=== PATIENT | male | born 1955 | race Caucasian/White ===

== ENCOUNTER → 2018-06-13 | Outpatient (REF) | payer BC ==
[2018-06-13 13:43] LABS: BASO # 0.1 10^3/uL (0.0-0.2); BASO % 0.9 % (0.0-1.0); EOS # 0.2 10^3/uL (0.0-0.50); EOS % 2.1 % (0.0-3.0); HEMATOCRIT 47.4 % (42.0-52.0); HEMOGLOBIN 15.9 g/dl (13.5-17.5); IMMATURE GRANULOCYTE % 0.2 % (0-3.0); LYMPH # 2.2 10^3/uL (1.5-4.5); LYMPH % 27.6 % (24.0-44.0); MEAN CORPUSCULAR HEMOGLOBIN 29.6 pg (27.0-33.0); MEAN CORPUSCULAR HGB CONC 33.5 g/dl (32.0-36.5); MEAN CORPUSCULAR VOLUME 88.3 fl (80.0-96.0); MONO # 0.7 10^3/uL (0.0-0.8); MONO % 8.8 % (0.0-5.0); NEUTROPHILS # 4.9 10^3/uL (1.8-7.7); NEUTROPHILS % 60.4 % (36.0-66.0); PLATELET COUNT, AUTOMATED 183 10^3/uL (150-450); RED BLOOD COUNT 5.37 10^6/uL (4.30-6.10); RED CELL DISTRIBUTION WIDTH 13.4 % (11.5-14.5); WHITE BLOOD COUNT 8.1 10^3/uL (4.0-10.0)
[2018-06-13 14:14] LABS: ALBUMIN/GLOBULIN RATIO 1.33 (1.00-1.93); ALKALINE PHOSPHATASE 75 U/L (45-117); ALT/SGPT 35 U/L (12-78); ANION GAP 10 MEQ/L (8-16); AST/SGOT 17 U/L (7-37); BILIRUBIN,TOTAL 0.6 MG/DL (0.2-1.0); BLOOD UREA NITROGEN 22 MG/DL (7-18); CALCIUM LEVEL 9.7 MG/DL (8.8-10.2); CARBON DIOXIDE LEVEL 24 MEQ/L (21-32); CHLORIDE LEVEL 106 MEQ/L (98-107); CREATININE FOR GFR 0.97 MG/DL (0.70-1.30); GLOMERULAR FILTRATION RATE > 60.0 (>49); GLUCOSE, FASTING 117 MG/DL (70-100); POTASSIUM SERUM 4.2 MEQ/L (3.5-5.1); RHEUMATOID FACTOR QUANT < 10.0 IU/ML (<15.0); SODIUM LEVEL 140 MEQ/L (136-145)
[2018-06-13 14:19] LABS: ERYTHROCYTE SEDIMENTATION RATE 3 mm/hr (0-20)
[2018-06-13 14:35] LABS: ESTIMATED AVERAGE GLUCOSE 140 MG/DL (60-110); HEMOGLOBIN A1c 6.5 %
[2018-06-13 15:23] LABS: FOLATE 14.3 NG/ML
[2018-06-17 08:36] LABS: ANTI DOUBLE STRAND-DNA AB <1 IU/mL (0-9); ANTINUCLEAR ANTIBODIES DIRECT Negative (Negative); COPPER PLASMA 98 ug/dL (72-166); LEAD BLOOD ADULT 2 ug/dL (0-4); Lyme Disease IgG/IgM Antibodie <0.91 ISR (0.00-0.90); Lyme Disease IgM Ab Quantitati <0.80 index (0.00-0.79); MERCURY LEVEL 2.2 ug/L (0.0-14.9); SJOGREN'S ANTI SS-A <0.2 AI (0.0-0.9); SJOGREN'S ANTI SS-B <0.2 AI (0.0-0.9)
[2018-06-17 11:17] LABS: ALBUMIN 4.28 GM/DL (3.29-5.55); ALBUMIN % 61.2 % (55.8-66.1); ALPHA-1-GLOBULIN % 4.2 % (2.9-4.9); ALPHA-1-GLOBULINS 0.29 GM/DL (0.17-0.41); ALPHA-2-GLOBULINS 0.81 GM/DL (0.42-0.99); ALPHA-2-GLOBULINS % 11.6 % (7.1-11.8); BETA-1-GLOBULINS 0.49 GM/DL (0.28-0.60); BETA-2-GLOBULINS 0.35 GM/DL (0.19-0.55); GAMMA GLOBULINS 0.77 GM/DL (0.65-1.58)
[2018-06-17 14:27] LABS: VITAMIN E(ALPHA TOCOPHEROL) 9.5 mg/L (9.0-29.0); VITAMIN E(GAMMA TOCOPHEROL) 1.2 mg/L (0.5-4.9)
== END ==
LOC: M LABNEURO 09:12
DX: G62.9 Polyneuropathy, unspecified (principal)
CPT/HCPCS: 82525

== ENCOUNTER 2020-06-29 18:16 | Emergency (ER) | payer BC ==
[~2020-06-29] VITALS: Ht 182.9 cm; Wt 137.4 kg
[~2020-06-29 18:16] MED LIST: ACET65TA; ACET65TA OR; ASPI81TA83 OR; ASPI81TA86 PO; COUM1TAB18; COUM1TAB18 OR; DIOV320T PO; GABA-843 PO; GLUC500T OR; GLUC500T PO; HYDR25TA6; METF500T13 PO; NAPRPOW4 PO; PERC5TAB8; PERC5TAB8 OR; PERC7.5T8; PERC7.5T8 OR; ROSU20TA5 PO; SIMV5TAB2 PO; VALS80TA PO
[2020-06-29 19:41] LABS: BASO # 0.1 10^3/uL (0.0-0.2); BASO % 0.5 % (0.0-1.0); EOS # 0.1 10^3/uL (0.0-0.5); EOS % 1.4 % (0.0-3.0); HEMATOCRIT 43.2 % (42.0-52.0); HEMOGLOBIN 14.2 g/dl (13.5-17.5); LYMPH # 2.4 10^3/uL (1.5-5.0); LYMPH % 24.3 % (24.0-44.0); MEAN CORPUSCULAR HEMOGLOBIN 28.4 pg (27.0-33.0); MEAN CORPUSCULAR HGB CONC 32.9 g/dl (32.0-36.5); MEAN CORPUSCULAR VOLUME 86.4 fl (80.0-96.0); MONO % 10.1 % (0.0-5.0); NEUTROPHILS # 6.2 10^3/uL (1.5-8.5); NEUTROPHILS % 63.5 % (36.0-66.0); PLATELET COUNT, AUTOMATED 188 10^3/uL (150-450); WHITE BLOOD COUNT 9.7 10^3/uL (4.0-10.0)
[2020-06-29 19:54] LABS: INR 0.99; PROTHROMBIN TIME 13.3 SECONDS (12.5-14.3)
[2020-06-29 19:55] LABS: PARTIAL THROMBOPLASTIN TIME 31.6 SECONDS (24.2-38.5)
[2020-06-29 20:03] LABS: ALBUMIN 3.9 GM/DL (3.2-5.2); BILIRUBIN,DIRECT 0.1 MG/DL (0.0-0.2); BILIRUBIN,TOTAL 0.4 MG/DL (0.2-1.0); TOTAL PROTEIN 6.9 GM/DL (6.4-8.2)
--- NOTE | 2020-06-29 20:28 | REPVR ---
PROCEDURE INFORMATION: Exam: US Duplex Right Lower Extremity Veins, Limited Exam date and time: 06/29/2020 7:52 PM Age: 64 years old Clinical indication: Pain; Leg, upper; Right; Additional info: R/O dvt rle TECHNIQUE: Imaging protocol: Real-time Duplex ultrasound of the Right Lower Extremity with 2-D elizalde scale, color Doppler flow and spectral waveform analysis with image documentation. Limited exam was focused on the right lower extremity veins. COMPARISON: No relevant prior studies available. FINDINGS: Right deep veins: Unremarkable. The common femoral, femoral, proximal profunda femoral and popliteal veins are patent without thrombus. Normal Doppler waveforms. Normal compressibility and/or augmentation response. Right superficial veins: Unremarkable. Saphenofemoral junction is patent without thrombus. Soft tissues: Unremarkable. IMPRESSION: No evidence of deep vein thrombosis. Electronically signed by: Stephanie Means On 06/29/2020 20:28:01 PM
--- NOTE | 2020-06-29 20:34 | REPVR ---
PROCEDURE INFORMATION: Exam: XR Right Hip with Pelvis when Performed Exam date and time: 06/29/2020 8:05 PM Age: 64 years old Clinical indication: Other: R hip pain; Prior surgery; Additional info: R hip pain, S/P doug and revision TECHNIQUE: Imaging protocol: XR Right hip with pelvis when performed. Views: 2 or 3 views. COMPARISON: CR Spine. Lumbosacral, complete 01/18/2016 3:11 PM FINDINGS: Bones/joints: Bilateral total hip prostheses. Satisfactory alignment of the prosthesis with no evidence of fracture or loosening. Degenerative changes present in the lumbar spine. Soft tissues: Myositis ossificans noted within the soft tissues surrounding both hips. Vasculature: Vascular calcifications present within the pelvis. IMPRESSION: Bilateral total hip prostheses. Satisfactory prosthesis alignment with no evidence of loosening Electronically signed by: Stephanie Means On 06/29/2020 20:34:38 PM
--- NOTE | 2020-06-29 21:39 | REPVR ---
PROCEDURE INFORMATION: Exam: CT Right Lower Extremity Without Contrast, Hip Exam date and time: 06/29/2020 8:58 PM Age: 64 years old Clinical indication: Pain; Hip; Right; Additional info: R hip pain, sp doug and revision TECHNIQUE: Imaging protocol: CT of the Right lower extremity without contrast was performed. Exam focused on the hip. Radiation optimization: All CT scans at this facility use at least one of these dose optimization techniques: automated exposure control; mA and/or kV adjustment per patient size (includes targeted exams where dose is matched to clinical indication); or iterative reconstruction. COMPARISON: CR Hip,AP,LAT to include Pelvis 06/29/2020 7:43 PM FINDINGS: Bones/joints: There is a right total hip prosthesis. Anatomic alignment of the prosthesis. No fracture seen. No evidence of loosening Soft tissues: Myositis ossificans noted of the soft tissues surrounding the right hip. Vasculature: Vascular calcifications present in the pelvis. Reproductive: Calcifications present in the prostate. IMPRESSION: Satisfactory appearance of right total hip prosthesis. No evidence of a fracture of the prosthesis, periprosthetic fracture or loosening Electronically signed by: Stephanie Means On 06/29/2020 21:39:06 PM
[2020-06-29] MEDS ORDERED: CYCL5TAB PO (21:51)
[2020-06-29] MEDS ORDERED: NORCO 5/325MG TABLET (BULK FOR ED) PO ONE (22:00)
[2020-06-29 22:15] VITALS: BP 133/74
== END 2020-06-29 22:17 | disposition home or self-care (01) ==
LOC: M ED 18:16
DX: M25.551 Pain in right hip (principal); Z96.643 Presence of artificial hip joint, bilateral; E11.9 Type 2 diabetes mellitus without complications; I10 Essential (primary) hypertension; E78.5 Hyperlipidemia, unspecified; F41.9 Anxiety disorder, unspecified; E66.9 Obesity, unspecified; Z87.891 Personal history of nicotine dependence; Z79.899 Other long term (current) drug therapy

== ENCOUNTER → 2020-07-02 | Outpatient (CLI) | payer BC ==
[~2020-07-02] MED LIST changes: +CYCL5TAB PO
== END ==
LOC: M LABSMTC 08:41
PROVIDERS: ATTEND Anesthesiology
DX: Z20.828 Contact with and (suspected) exposure to other viral communicable diseases (principal)
CPT/HCPCS: C9803; U0003

== ENCOUNTER 2020-07-07 07:09 | Day surgery (SDC) | payer BC ==
[~2020-07-07] VITALS: Ht 182.9 cm; Wt 132.9 kg
[~2020-07-07 07:09] MED LIST changes: +NS 1,000 ML IV ONE
[2020-07-07] MEDS ORDERED: propofoL 200 MG/20 ML VIAL As Ordered ONE ×2 (07:46→08:04)
--- NOTE | 2020-07-07 08:26 | ROOR ---
Patient Name: Foster Stinson Procedure Date: 07/07/2020 7:52 AM Date of : 1955 Age: 64 Room: [facility] Gender: Male Note Status: Finalized Procedure: Colonoscopy Indications: Screening patient at increased risk: Family history of 1st-degree relative with colorectal cancer at age 60 years (or older) Providers: Zbigniew Roberto Jr, MD Referring MD: MIRTA SALDAÑA DO Requesting Provider: Medicines: Propofol per Anesthesia Complications: No immediate complications. Procedure: Pre-Anesthesia Assessment: - Prior to the procedure, a History and Physical was performed, and patient medications and allergies were reviewed. The patient is competent. The risks and benefits of the procedure and the sedation options and risks were discussed with the patient. All questions were answered and informed consent was obtained. Patient identification and proposed procedure were verified by the physician and the nurse in the pre-procedure area and in the procedure room. Mental Status Examination: alert and oriented. Airway Examination: normal oropharyngeal airway and neck mobility. Respiratory Examination: clear to auscultation. CV Examination: normal. ASA Grade Assessment: II - A patient with mild systemic disease. After reviewing the risks and benefits, the patient was deemed in satisfactory condition to undergo the procedure. The anesthesia plan was to use moderate sedation / analgesia (conscious sedation). Immediately prior to administration of medications, the patient was re-assessed for adequacy to receive sedatives. The heart rate, respiratory rate, oxygen saturations, blood pressure, adequacy of pulmonary ventilation, and response to care were monitored throughout the procedure. The physical status of the patient was re-assessed after the procedure. The Colonoscope was introduced through the anus and advanced to the cecum, identified by appendiceal orifice and ileocecal valve. The colonoscopy was performed without difficulty. The patient tolerated the procedure well. The quality of the bowel preparation was adequate. Findings: Three sessile polyps were found in the sigmoid colon, ascending colon and cecum. The polyps were small in size. These polyps were removed with a cold snare. Resection was complete, but the polyp tissue was only partially retrieved. The rectum, recto-sigmoid colon, descending colon, transverse colon, appendiceal orifice and ileocecal valve appeared normal. Impression: - Three small polyps in the sigmoid colon, in the ascending colon and in the cecum, removed with a cold snare. Complete resection. Partial retrieval. - The rectum, recto-sigmoid colon, descending colon, transverse colon, appendiceal orifice and ileocecal valve are normal. Recommendation: - Discharge patient to home (ambulatory). - Repeat colonoscopy in 5 years for surveillance. Zbigniew Roberto MD Zbigniew Roberto Jr, MD 07/07/2020 8:25:46 AM Electronically signed by Zbigniew Roberto Jr, MD Number of Addenda: 0 Note Initiated On: 07/07/2020 7:52 AM Estimated Blood Loss: Estimated blood loss: none.
[2020-07-07 08:50] VITALS: BP 130/85
== END 2020-07-07 08:56 | disposition home or self-care (01) ==
LOC: M OPP 07:09
PROVIDERS: ATTEND Surgery
DX: Z12.11 Encounter for screening for malignant neoplasm of colon (principal); Z80.0 Family history of malignant neoplasm of digestive organs; D12.6 Benign neoplasm of colon, unspecified; I10 Essential (primary) hypertension; E11.9 Type 2 diabetes mellitus without complications; Z87.891 Personal history of nicotine dependence; Z79.84 Long term (current) use of oral hypoglycemic drugs; Z79.899 Other long term (current) drug therapy

== ENCOUNTER 2020-08-23 12:57 | Emergency (ER) | payer BC ==
[~2020-08-23] VITALS: Ht 182.9 cm; Wt 136.8 kg
[~2020-08-23 12:57] MED LIST changes: -NS 1,000 ML IV ONE
--- NOTE | 2020-08-23 13:48 | REP ---
INDICATION: neuro symptoms; r/o stroke. COMPARISON: None. TECHNIQUE: Helical scanning is acquired. 5 mm axial images were reformatted. Coronal MPR images were generated. FINDINGS: Bone window settings demonstrate an intact bony calvarium. There is no evidence of skull fracture or incidental bony calvarial lesion. The visualized paranasal sinuses appear clear. No intraorbital abnormality is seen. On soft tissue window setting images; the lateral, third, and fourth ventricles are normal in size and position. Pearson-white differentiation pattern is normal above and below the tentorium. There are is no evidence of intracranial hemorrhage. No mass, edema, infarction, or midline shift is seen. No extra-axial fluid collection is appreciated. IMPRESSION: Negative noncontrast head CT. <Electronically signed by Escobar Avila > 08/23/20 [id number]
[2020-08-23 14:00] LABS: BASO # 0.1 10^3/uL (0.0-0.2); BASO % 0.7 % (0.0-1.0); EOS # 0.2 10^3/uL (0.0-0.5); EOS % 2.2 % (0.0-3.0); HEMATOCRIT 44.6 % (42.0-52.0); HEMOGLOBIN 15.1 g/dl (13.5-17.5); LYMPH % 26.2 % (24.0-44.0); MEAN CORPUSCULAR HEMOGLOBIN 28.9 pg (27.0-33.0); MEAN CORPUSCULAR HGB CONC 33.9 g/dl (32.0-36.5); MEAN CORPUSCULAR VOLUME 85.4 fl (80.0-96.0); MONO # 0.6 10^3/uL (0.0-0.8); MONO % 8.5 % (0.0-5.0); NEUTROPHILS # 4.6 10^3/uL (1.5-8.5); NEUTROPHILS % 62.1 % (36.0-66.0); PLATELET COUNT, AUTOMATED 202 10^3/uL (150-450); RED BLOOD COUNT 5.22 10^6/uL (4.30-6.10); WHITE BLOOD COUNT 7.4 10^3/uL (4.0-10.0)
[2020-08-23] MEDS ORDERED: ASPIRIN 81 MG CHEW TABLET PO ONE (14:00)
[2020-08-23 14:11] LABS: INR 0.94; PROTHROMBIN TIME 12.8 SECONDS (12.5-14.3)
[2020-08-23 14:12] LABS: PARTIAL THROMBOPLASTIN TIME 33.3 SECONDS (24.2-38.5)
--- NOTE | 2020-08-23 14:12 | REP ---
INDICATION: CVA. COMPARISON: Comparison chest x-ray May 16, 2011.. TECHNIQUE: Sitting AP portable radiograph. FINDINGS: Today's radiograph is exposed at a lordotic angle. Monitoring electrodes are seen. The lungs are symmetrically aerated and free of infiltrate. Pleural angles are sharp. Cardiomediastinal silhouette is unremarkable. IMPRESSION: No acute disease. <Electronically signed by Escobar Avila > 08/23/20 [id number]
[2020-08-23 14:41] LABS: BLOOD UREA NITROGEN 17 MG/DL (7-18); CALCIUM LEVEL 9.7 MG/DL (8.8-10.2); CARBON DIOXIDE LEVEL 25 MEQ/L (21-32); CHLORIDE LEVEL 106 MEQ/L (98-107); CPK CREATINE PHOSPHOKINASE 93 U/L (39-308); CREATININE FOR GFR 0.91 MG/DL (0.70-1.30); GLOMERULAR FILTRATION RATE > 60.0 (>49); GLUCOSE, FASTING 131 MG/DL (70-100); MB/CK RELATIVE INDEX 1.08 (< OR =4); POTASSIUM SERUM 3.9 MEQ/L (3.5-5.1); SODIUM LEVEL 139 MEQ/L (136-145); TROPONIN I < 0.02 NG/ML (< 0.10)
--- NOTE | 2020-08-23 15:03 | REPVR ---
PROCEDURE INFORMATION: Exam: MR Angiogram Head Without Contrast, Arteries Exam date and time: 08/23/2020 1:58 PM Age: 64 years old Clinical indication: Weakness; Additional info: Left arm weakness/numbness TECHNIQUE: Imaging protocol: MR angiogram head without contrast. Exam focused on the arteries. COMPARISON: CT Head without contrast 08/23/2020 1:32 PM FINDINGS: ANTERIOR CIRCULATION: Right internal carotid artery: Intracranial segment is patent with no significant stenosis. No aneurysm. Right middle cerebral artery: No occlusion or significant stenosis. No definite aneurysm. Slight bulbous prominence of the right anterior temporal artery origin, image 94 of series 801, for example. The appearance could be related to mild motion artifact. Right anterior cerebral artery: Patent. 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 Left internal carotid artery: Intracranial segment is patent with no significant stenosis. No aneurysm. Left middle cerebral artery: No occlusion or significant stenosis. No aneurysm. Left anterior cerebral artery: No occlusion or significant stenosis. No aneurysm. POSTERIOR CIRCULATION: Right vertebral artery: No occlusion or significant stenosis. No aneurysm. Left vertebral artery: No occlusion or significant stenosis. No aneurysm. Basilar artery: No occlusion or significant stenosis. No aneurysm. Right posterior cerebral artery: No occlusion or significant stenosis. No aneurysm. Left posterior cerebral artery: No occlusion or significant stenosis. No aneurysm. IMPRESSION: No proximal arterial occlusion. Electronically signed by: Qing Arenas On 08/23/2020 15:04:11 PM
--- NOTE | 2020-08-23 15:10 | REPVR ---
PROCEDURE INFORMATION: Exam: MR Head Without Contrast Exam date and time: 08/23/2020 1:58 PM Age: 64 years old Clinical indication: Weakness, extremity; Left; Additional info: Left arm weakness/numbness TECHNIQUE: Imaging protocol: MR of the head without contrast. COMPARISON: CT Head without contrast 08/23/2020 1:32 PM FINDINGS: Brain: No acute infarct identified on the diffusion-weighted imaging. No parenchymal hemorrhage. The T2 weighted imaging demonstrates mild patchy increased signal intensity in the deep white matter most likely representing mild chronic small vessel ischemic change. Cerebral ventricles: Normal. No ventriculomegaly. Bones/joints: Unremarkable. Paranasal sinuses: Trace ethmoid mucosal thickening. Mastoid air cells: Small left and trace right mastoid effusions. Orbits: Unremarkable. Soft tissues: Unremarkable. IMPRESSION: No evidence of acute infarct. Electronically signed by: Qing Arenas On 08/23/2020 15:10:56 PM
--- NOTE | 2020-08-23 17:11 | ECGEPIP ---
[facility] - ED Test Date: 2020-08-23 Pat Name: FERNY ROBERTS Department: Room: - Gender: Male Lic[address] Magistrate: natalie : 1955 Requested By: STEFANO VEGA Order Number: [id number] Reading MD: Antoinette Rodriguez Measurements Intervals [place] Rate: 65 P: 30 OR: 210 QRS: 9 QRSD: 162 T: -9 QT: 455 QTc: 474 Interpretive Statements SINUS RHYTHM WITH FIRST DEGREE AV BLOCK RIGHT BUNDLE BRANCH BLOCK PROLONGED QTC INFERIOR INFARCT NO PRIOR Electronically Signed on 08-23-2020 17:10:26 EST by Antoinette Rodriguez
[2020-08-23 18:33] LABS: CK-MB VALUE MASS < 1.0 NG/ML (<3.6); CPK CREATINE PHOSPHOKINASE 82 U/L (39-308); MB/CK RELATIVE INDEX 1.22 (< OR =4); TROPONIN I < 0.02 NG/ML (< 0.10)
[2020-08-23 19:15] VITALS: BP 135/84
--- NOTE | 2020-08-26 07:32 | ECGEPIP ---
[facility] - ED Test Date: 2020-08-23 Pat Name: FERNY ROBERTS Department: Room: - Gender: Male [employer] Developer: : 1955 Requested By: STEFANO VEGA Order Number: [id number] Reading MD: Antoinette Rodriguez Measurements Intervals [place] Rate: 60 P: 13 DC: 215 QRS: 11 QRSD: 165 T: -3 QT: 461 QTc: 463 Interpretive Statements SINUS RHYTHM WITH FIRST DEGREE AV BLOCK RIGHT BUNDLE BRANCH BLOCK PROLONGED QTC INFERIOR INFARCT SIMILAR 08/23/20 Electronically Signed on 08-26-2020 7:31:49 EST by Antoinette Rodriguez
== END 2020-08-23 19:39 | disposition home or self-care (01) ==
LOC: M ED 12:57
DX: R20.2 Paresthesia of skin (principal); R94.31 Abnormal electrocardiogram [ECG] [EKG]; E11.40 Type 2 diabetes mellitus with diabetic neuropathy, unspecified; I10 Essential (primary) hypertension; E78.5 Hyperlipidemia, unspecified; Z79.82 Long term (current) use of aspirin; Z79.899 Other long term (current) drug therapy

== ENCOUNTER → 2024-01-16 | Outpatient (CLI) | payer BC ==
[~2024-01-16] MED LIST changes: +GABA-282 PO; -GABA-843 PO; -ROSU20TA5 PO; +ROSU20TA61 PO
[2024-01-16 13:57] LABS: BASO # 0.1 10^3/uL (0.0-0.2); BASO % 0.7 % (0.0-1.0); EOS # 0.1 10^3/uL (0.0-0.5); EOS % 1.8 % (0.0-3.0); HEMOGLOBIN 16.7 g/dl (13.5-17.5); LYMPH % 28.8 % (24.0-44.0); MEAN CORPUSCULAR HEMOGLOBIN 29.3 pg (27.0-33.0); MEAN CORPUSCULAR HGB CONC 32.7 g/dl (32.0-36.5); MEAN CORPUSCULAR VOLUME 89.5 fl (80.0-96.0); MONO # 0.6 10^3/uL (0.0-0.8); MONO % 8.9 % (2.0-8.0); NEUTROPHILS % 59.5 % (36.0-66.0); PLATELET COUNT, AUTOMATED 201 10^3/uL (150-450); WHITE BLOOD COUNT 6.8 10^3/uL (4.0-10.0)
[2024-01-16 14:09] LABS: ERYTHROCYTE SEDIMENTATION RATE 12 mm/hr (0-20)
[2024-01-16 14:43] LABS: LIPASE 470 U/L (12-53)
[2024-01-16 14:45] LABS: ALBUMIN 4.2 G/DL (3.2-5.2); ALKALINE PHOSPHATASE 78 U/L (46-116); ALT/SGPT 22 U/L (7.0-40); AST/SGOT 16 U/L (<34); BILIRUBIN,TOTAL 0.7 MG/DL (0.3-1.2); BLOOD UREA NITROGEN 18 MG/DL (9-23); CALCIUM LEVEL 10.1 MG/DL (8.3-10.6); CARBON DIOXIDE LEVEL 28 MMOL/L (20-31); CHLORIDE LEVEL 102 MMOL/L (98-107); CHOLESTEROL LEVEL 140 MG/DL (<200); CHOLESTEROL RISK RATIO 2.32 (<5); CREATININE FOR GFR 0.84 MG/DL (0.70-1.30); GLOMERULAR FILTRATION RATE > 60.0 (>42); GLUCOSE, FASTING 134 MG/DL (74-106); HDL CHOLESTEROL 60.2 MG/DL (> 40); HDL CHOLESTEROL 60.2 MG/DL (>40); NON-HDL-C 79.8 MG/DL; POTASSIUM SERUM 4.2 MMOL/L (3.5-5.1); SODIUM LEVEL 139 MMOL/L (136-145); TOTAL PROTEIN 6.8 G/DL (5.7-8.2); TRIGLYCERIDES LEVEL 124 MG/DL (<150)
[2024-01-16 14:47] LABS: HEMOGLOBIN A1c 6.7 % (4.0-6.0)
== END ==
LOC: M WUC 10:12
PROVIDERS: ATTEND Family Medicine
DX: E11.40 Type 2 diabetes mellitus with diabetic neuropathy, unspecified (principal); I10 Essential (primary) hypertension; R51.9 Headache, unspecified